=== PATIENT | female | born 1975 | race Caucasian/White ===

== ENCOUNTER 2022-09-03 06:43 | Day surgery (SDC) | payer OTHER ==
[~2022-09-03] VITALS: Ht 162.6 cm; Wt 95.3 kg
[2022-09-03] MEDS ORDERED: MORGIDOX100 MG PO (14:10)
[2022-09-03] MEDS ORDERED: INTEGRA PLUS C1 EACH PO (14:11)
== END 2022-09-03 15:55 | disposition home or self-care (01) ==
LOC: CIR.AMB 06:43
PROVIDERS: ATTEND Obstetrics & Gynecology
DX: N92.1 Excessive and frequent menstruation with irregular cycle (principal); N84.0 Polyp of corpus uteri; D25.0 Submucous leiomyoma of uterus; Z20.822 Contact with and (suspected) exposure to COVID-19; Z86.16 Personal history of COVID-19